=== PATIENT | male | born 1970 | race Caucasian/White ===

== ENCOUNTER 2022-05-11 08:32 | Inpatient (IN) | payer OTHER ==
[~2022-05-11] VITALS: Ht 177.8 cm; Wt 113.4 kg
[~2022-05-11 08:32] MED LIST: BLOOD PRESSURE MED; CYCL10; CYCL10 PO; HYDACE5; IBUP800; OXYACE5T PO; PRED10 PO
[2022-05-11] MEDS ORDERED: Simvastatin20 MG PO (09:25)
[2022-05-11] MEDS ORDERED: AMLODIPINE BESY10 MG PO (09:25)
[2022-05-11] MEDS ORDERED: LOSA25 PO (09:25)
[2022-05-11] MEDS ORDERED: METO50ER PO (09:25)
[2022-05-11 09:32] LABS: Influenza A, PCR NEGATIVE (NEGATIVE); Influenza B, PCR NEGATIVE (NEGATIVE); Resp Syncytial Virus, PCR NEGATIVE (NEGATIVE); SARS-Cov-2 (COVID-19) PCR, MMC NEGATIVE (NEGATIVE)
--- NOTE | 2022-05-12 00:55 | NUR ---
ASSUMED CARE OF PT AT THIS TIME.
[2022-05-12 05:23] LABS: Hematocrit 37.3 % (37.0-53.0); Hemoglobin 12.7 g/dL (13.5-17.5); Mean Corpuscular HGB 31.9 pg (26.0-34.0); Mean Corpuscular Volume 94 fL (80-100); Mean Platelet Volume 9.7 fL (9.1-12.4); Platelet Count 139 K/mm3 (150-400); RDW Coefficient Variation 12.3 % (11.7-14.2); RDW Standard Deviation 42.8 fL (35.1-46.3); Red Blood Cell Count 3.98 M/mm3 (4.30-5.90); White Blood Cell Count 7.91 K/mm3 (4.00-11.30)
--- NOTE | 2022-05-12 05:46 | NUR ---
SHIFT SUMMARY PT SLEPT MOST OF THE NIGHT. PT AWOKE THIS AM WITH PAIN AND WAS MEDICATED PER EMAR. PT STILL HAS FLUIDS RUNNING AT 75ML/HR. ALERT AND ORIENTED, PT HAS CALL LIGHT WITHIN HIS REACH.
--- NOTE | 2022-05-12 07:51 | NUR ---
PATIENT HAD A HARDER TIME GETTING OUT OF BED, PATIENT WAS INSTRUCTED TO STAND FOR A COUPLE MINS BEFORE WALKING VIA THE NURSE. PATIENT WAS INDEPENDENT TO THE BATHROOM, ONLY NEEDING HELP THE THE IV LINES. PATIENT IS NOW SITTING UP IN THE CHAIR, CALL LIGHT IN REACH.
--- NOTE | 2022-05-12 18:08 | NUR ---
PT SITTING UP IN CHAIR AND AMBULATING IN ROOM SINCE INITIALLY ASSISTED OOB THIS AM. PT REPORTS ADEQUATE PAIN CONTROL WITH PO MEDS. DENIES NAUSEA, ROBERTA CLEAR LIQUIDS. PT STATES IS PASSING SMALL AMOUNTS OF GAS. ABD BINDER IN PLACE.
--- NOTE | 2022-05-12 20:15 | NUR ---
RECEIVED REPORT AND ASSUMED CARE OF PT. HE IS SITTING UP IN THE RECLINER, INDEPENDENT IN THE ROOM. REPORTS PAIN TOLERABLE AT THIS TIME, TOLERATING PO INTAKE. DENIES ANY NEEDS AT THIS TIME.
--- NOTE | 2022-05-13 05:20 | NUR ---
SHIFT SUMMARY: HARMEET IS A&OX4. VSS, NO ACUTE EVENTS OVERNIGHT. HE IS INDEPENDENT IN THE ROOM, TOLERATING CLEAR LIQUIDS WITHOUT ANY DIFFICULTIES, AND REPORTS ADEQUATE PAIN CONTROL WITH 5 MG OF OXYCODONE AND 15 MG OF TORADOL. DRESSING C/D&I, ABDOMINAL BINDER IN PLACE. HE DENIES ANY DIFFICULTIES URINATING, REPORTS PASSING GAS ONCE YESTERDAY. HE IS AMBULATING IN THE ROOM WITH THE CALL LIGHT IN REACH. WILL REPORT TO DAY SHIFT RN.
--- NOTE | 2022-05-13 07:33 | NUR ---
ASSUMED CARE: PT LAYING IN BED. STATES COMFORTABLE. ABDOMINAL BINDER IN PLACE. DRESSING CDI. ASKS IF HE CAN TAKE A SHOWER LATER. DENIES OTHER NEEDS OR CONCERNS AT THIS TIME.
[2022-05-13] MEDS ORDERED: OXAYDO5 M1 PO (11:34)
--- NOTE | 2022-05-13 12:00 | NUR ---
PT'S IV REMOVED WNL. DISCUSSED DISCHARGE INSTRUCTIONS WITH PT AND HIS . DENIED FURTHER QUESTIONS OR CONCERNS. AMBULATORY UPON DISCHARGE. DENIED FURTHER QUESTIONS OR CONCERNS.
== END 2022-05-13 12:30 | disposition home or self-care (01) | DRG 908 ==
LOC: ER 08:32 → SURS 13:18
PROVIDERS: Emergency Medicine; ADMIT Surgery
PROC: 0WPF0JZ Removal of Synthetic Substitute from Abdominal Wall, Open Approach (ICD-10-PCS; principal; 2022-05-11 12:15)
PROC: 0DB80ZZ Excision of Small Intestine, Open Approach (ICD-10-PCS; 2022-05-11 12:15)
DX: T85.79XA Infection and inflammatory reaction due to other internal prosthetic devices, implants and grafts, initial encounter (principal); K42.0 Umbilical hernia with obstruction, without gangrene; K91.71 Accidental puncture and laceration of a digestive system organ or structure during a digestive system procedure; Z20.822 Contact with and (suspected) exposure to COVID-19; I10 Essential (primary) hypertension; G89.29 Other chronic pain; E66.9 Obesity, unspecified; Z68.35 Body mass index [BMI] 35.0-35.9, adult; M54.50 Low back pain, unspecified; Z98.890 Other specified postprocedural states; Z98.1 Arthrodesis status; Z79.899 Other long term (current) drug therapy; Y83.1 Surgical operation with implant of artificial internal device as the cause of abnormal reaction of the patient, or of later complication, without mention of misadventure at the time of the procedure
CPT/HCPCS: 0241U; 36415; 85027; 87070; 87075; 87205; 88302; 88307; 93005; 93010; 94760; 96360; 96361; 99284-25; A9270; J0696; J1100; J1170; J1650; J1885; J2250; J2370; J2405; J2704; J2765; J2795; J3010; J7030; J7120

== ENCOUNTER 2025-01-27 00:17 | Emergency (ER) | payer OTHER ==
[~2025-01-27] VITALS: Ht 182.9 cm; Wt 127.0 kg
[~2025-01-27 00:17] MED LIST changes: +AMLODIPINE BESY10 MG PO; +LOSA25 PO; +METO50ER PO; +OXAYDO5 M1 PO; +Simvastatin20 MG PO
[2025-01-27] MEDS ORDERED: EPINEPHRIN0.3 MG/0.1 IM (00:34)
[2025-01-27] MEDS ORDERED: TRIA50 PO (00:34)
[2025-01-27] MEDS ORDERED: AMOCLA875 PO (00:44)
[2025-01-27] MEDS ORDERED: Amoxicillin/Clavulanate K 875 MG Tab PO ONE (00:45)
[2025-01-27 01:08] VITALS: BP 114/79
[2025-01-27] MEDS ORDERED: NS 1,000 ML IV ONE (01:13)
== END 2025-01-27 01:11 | disposition home or self-care (01) ==
LOC: ER 00:17
DX: S81.831A Puncture wound without foreign body, right lower leg, initial encounter (principal); I83.891 Varicose veins of right lower extremity with other complications; W55.03XA Scratched by cat, initial encounter; I10 Essential (primary) hypertension; Z79.84 Long term (current) use of oral hypoglycemic drugs; Z87.892 Personal history of anaphylaxis; Z79.02 Long term (current) use of antithrombotics/antiplatelets; Z79.899 Other long term (current) drug therapy; Z79.51 Long term (current) use of inhaled steroids; Z79.891 Long term (current) use of opiate analgesic
CPT/HCPCS: 99282; A9270; J7030